=== PATIENT | male | born 1995 | race Caucasian/White ===

== ENCOUNTER 2023-03-18 23:08 | Emergency (ER) | payer MEDICAID, SELFPAY ==
[2023-03-18 23:10] VITALS: BP 106/61; PULSE 60; RESP 16; TEMP 36.8; O2SAT 99; BMI 19.5
[2023-03-19] MEDS: Ketorolac 15 MG/ML Vial IM (00:37)
--- NOTE | 2023-03-19 00:44 | EDS_ITS ---
HPI History of Present Illness Chief Complaint: Headache Informant: patient Narrative Narrative: Patient is a 27 year old female with history of tension headaches presenting for a headache. She states she has had a headache constant for the past week. It does fluctuate in intensity. She does not describe a thunderclap headache or stated this is the worst headache of her life. She denies any photo or phonophobia. States it starts in the back of her head and radiates around to her right buddhist/forehead. Denies any neck pain. Denies any fever or chills. States she has been under more stress lately. Staff are concerned for as she had a recent miscarriage and has had negative test since. She does follow with [facility]. She is taken Tylenol for her headache with no relief tonight. Has been has been to take naproxen at home because it makes her sleepy. States has been to the ER in the past for headaches and usually Toradol makes it better. No other complaints or concerns at this time. Denies any head trauma. PFSH PFS Medical History Anxiety Asthma Depression H/O TB (tuberculosis) Headache Hypoglycemia Home Medications isoniazid 300 mg tablet 300 mg PO DAILY 03/18/23 [History Last Taken Unknown] Allergy/AdvReac Type Severity Reaction Status Date / Time amoxicillin Allergy Mild Hives Verified 03/18/23 23:15 Bleach (Sodium Hypochlorite) Allergy Mild Angioedema Verified 03/18/23 23:15 cefixime [From Suprax] Allergy Mild Rash Verified 03/18/23 23:15 erythromycin base Allergy Mild Hives Verified 03/18/23 23:15 sulfamethoxazole Allergy Mild Rash Verified 03/18/23 23:15 [From Bactrim] trimethoprim [From Bactrim] Allergy Mild Rash Verified 03/18/23 23:15 Family History Mother Diabetes Surgical History History of open heart surgery Social History household members: significant other and children Smoking Status: Light Smoker (<10/day) ROS ROS ED Constitutional Constitutional ED: Denies chills or fever(s) Eyes Eyes: Denies blurry vision or change in vision ENT ENT ED: Reports ear pain right; Denies rhinorrhea or sore throat Cardiovascular Cardiovascular: Denies chest pain or palpitations Respiratory/Chest Respiratory/Chest: Denies cough Gastrointestinal Gastrointestinal: Denies abdominal pain, nausea or vomiting Musculoskeletal Musculoskeletal: Denies neck pain Integumentary Denies rash Neurologic Neurologic: Reports headache(s); Denies paresthesias or weakness Psychiatric Psychiatric: Denies anxiety EXAM Physical Exam Const Vital Signs: 03/18/23 23:10 Temperature 98.2 F Temperature Source Temporal Pulse Rate 60 Respiratory Rate 16 Blood Pressure 106/61 Blood Pressure Mean 76 Pulse Ox 99 Oxygen Delivery Method Room Air Positive well nourished and well developed General Appearance ED: well developed and NAD HEENT Reports normocephalic and moist mucous membranes HEENT Narrative: Mild right parietal tenderness to palpation atraumatic and tenderness; Negative for temporal artery tenderness Eyes PERRL Neck supple, no meningeal signs and no JVD Resp normal respiratory effort and clear to auscultation bilaterally Cardio regular rate and regular rhythm Extremity normal to inspection and full ROM General Extremety ED: Negative for edema General Extremity: Negative for edema Neuro oriented x3 and CN's II-XII intact bilaterally Sensorium / Orientation: awake and alert Motor Exam: Negative for general weakness Psych mental status grossly normal Skin Lesions: no lesions Rashes: no rashes MDM MDM MDM Narrative Medical decision making narrative: Patient evaluated for 1 week of headache. Headache is most consistent with a tension headache. Given dose of IM Toradol. States this worked for her in the past. Would like to go home after receiving the shot does not want to wait to see if she improves since the Toradol makes her sleepy. Instructed alternate ibuprofen with Tylenol for her headache. Counseled on drinking more water. Given return precautions. Patient's presentation is not concerning for subarachnoid hemorrhage/thunderclap headache, meningitis or other more insidious causes of a headache. This does not seem like a migraine based on her description. Patient given return precautions. Patient and significant other verbalized agreement understand this plan. Discharged home in stable condition. Discharge Plan Triage Chief Complaint: Headache ED Provider: Torie Linares Dx/Rx/DC Orders Clinical Impression: Acute tension-type headache Instructions: ED Headache, Tension Prescriptions: No Action isoniazid 300 mg tablet 300 mg PO DAILY Primary Care Provider: KIMBERLY BURKS Referrals: KIMBERLY BURKS [Other] Activity Restrictions/Additional Instructions: As we discussed anti-inflammatory such as ibuprofen or naproxen tend to be more beneficial for treating these kind of headaches. You may alternate this with Tylenol. Drink lots of fluids and keep yourself hydrated. Return to ER if you have progression or worsening of your symptoms. Disposition Disposition: Home, Self Care
[2023-03-19 00:55] VITALS: BP 102/68; PULSE 78; RESP 18
== END 2023-03-19 00:55 | disposition home or self-care (01) ==
PROVIDERS: Emergency Provider Emergency Medicine; Visit Provider Emergency Medicine
DX: G44.209 Tension-type headache, unspecified, not intractable (principal); F17.200 Nicotine dependence, unspecified, uncomplicated
CPT/HCPCS: 96374; 99282